=== PATIENT | male | born 1995 | race Caucasian/White ===

== ENCOUNTER 2017-07-28 15:41 | Emergency (ER) | payer MEDICAID ==
[~2017-07-28] VITALS: Ht 167.6 cm; Wt 90.0 kg
[2017-07-28 16:26] LABS: HEMATOCRIT. 40.2 % (42.0-52.0); MEAN CORPUSCULAR HEMOGLOBIN 30.6 pg (28.0-32.0); MEAN CORPUSCULAR VOLUME 87.8 fL (80.0-94.0); MEAN PLATELET VOLUME 9.3 fl (7.4-10.4); PLATELET 208 x1000/uL (130-400); RED BLOOD CELL COUNT 4.58 mill/uL (4.7-6.1)
[2017-07-28] MEDS ORDERED: SODIUM CHLORIDE 0.9% 1,000 ML IV ONE (16:26)
[2017-07-28 16:30] LABS: CHLORIDE 102 mEq/L (98-107)
[2017-07-28] MEDS ORDERED: ACETAMINOPHEN 325MG TABLET PO ONE (16:30)
[2017-07-28 16:31] LABS: INR 1.1; PROTHROMBIN TIME 11.6 sec (9.4-11.6)
[2017-07-28] MEDS ORDERED: PENICILLIN G BENZATHINE 1,200,000 UNITS/2ML SYR IM ONE (17:30)
[2017-07-28] MEDS ORDERED: KETOROLAC 30MG/ML VIAL IV ONE (17:30)
[2017-07-28 17:43] LABS: PLATELET ESTIMATE NORMAL
[2017-07-28] MEDS ORDERED: IOHEXOL-300 100 ML BOTTLE ONE (18:16)
[2017-07-28 19:43] VITALS: BP 112/67
[2017-07-28] MEDS ORDERED: TETRACAINE/BENZOCAINE/BUTAMBEN 20 GM SPRAY MM ONE (20:15)
== END 2017-07-28 22:25 | disposition home or self-care (01) ==
LOC: ER 15:55
DX: J36 Peritonsillar abscess (principal); J45.909 Unspecified asthma, uncomplicated
CPT/HCPCS: 36415; 42700; 70491; 80053; 83605; 85025; 85610; 87040; 93005; 96372; 96374; 99285; J0561; J1885; J7030; Q9967; Z7610

== ENCOUNTER 2018-09-13 13:11 | Emergency (ER) | payer MEDICAID ==
[~2018-09-13] VITALS: Ht 180.3 cm; Wt 100.0 kg
[2018-09-13] MEDS ORDERED: LORAZEPAM 1MG TABLET PO ONE (14:45)
[2018-09-13 16:54] VITALS: BP 141/76
== END 2018-09-13 16:57 | disposition home or self-care (01) ==
LOC: ER 15:59
DX: R00.2 Palpitations (principal); F41.9 Anxiety disorder, unspecified
CPT/HCPCS: 82962; 93005; 99283